=== PATIENT | male | born 1940 | race Caucasian/White ===

== ENCOUNTER → 2018-11-04 | Outpatient (CLI) | payer MEDICARE | LOC: LAB SHORT 07:15 → PLD 07:15 | DX: D48.5 Neoplasm of uncertain behavior of skin (principal) | CPT/HCPCS: 88341; 88342 ==

== ENCOUNTER → 2018-12-05 | Outpatient (CLI) | payer MEDICARE | LOC: LAB 12:00 → LAB SHORT 12:00 | DX: Z48.817 Encounter for surgical aftercare following surgery on the skin and subcutaneous tissue (principal) | CPT/HCPCS: 87070; 87205 ==

== ENCOUNTER → 2020-11-28 | Outpatient (CLI) | payer MEDICARE | END | disposition home or self-care (01) | LOC: LAB SHORT 13:14 | PROVIDERS: Family Medicine | DX: M16.12 Unilateral primary osteoarthritis, left hip (principal); Z79.899 Other long term (current) drug therapy | CPT/HCPCS: G0480 ==

== ENCOUNTER 2024-06-21 11:51 | Inpatient (IN) | payer OTHER ==
[2024-06-21] VITALS (13 sets, daily range): BP systolic 139–173; BP diastolic 78–92
[~2024-06-21] VITALS: Ht 182.9 cm; Wt 95.1 kg
[2024-06-21 12:25] LABS: BASOPHILS ABSOLUTE AUTO 0.02 K/mm3 (0.00-0.23); BASOPHILS PERCENT AUTO 0 % (0-2); EOSINOPHILS ABSOLUTE AUTO 0.03 K/mm3 (0.00-0.68); EOSINOPHILS PERCENT AUTO 1 % (0-6); Hematocrit 43.3 % (37.0-53.0); Hemoglobin 15.1 g/dL (13.5-17.5); IMMATURE GRAN ABSOLUTE AUTO 0.01 K/mm3 (0.00-0.10); IMMATURE GRAN PERCENT AUTO 0 % (0-1); LYMPHOCYTES ABSOLUTE AUTO 0.83 K/mm3 (0.84-5.20); LYMPHOCYTES PERCENT AUTO 14 % (21-46); MONOCYTES ABSOLUTE AUTO 0.79 K/mm3 (0.16-1.47); MONOCYTES PERCENT AUTO 13 % (4-13); Mean Corpuscular HGB 32.3 pg (26.0-34.0); Mean Corpuscular HGB Conc 34.9 g/dL (31.5-36.5); Mean Corpuscular Volume 93 fL (80-100); Mean Platelet Volume 10.6 fL (9.1-12.4); NEUTROPHILS ABSOLUTE AUTO 4.36 K/mm3 (1.96-9.15); NEUTROPHILS PERCENT AUTO 72 % (41-73); Platelet Count 200 K/mm3 (150-400); RDW Coefficient Variation 13.2 % (11.7-14.2); RDW Standard Deviation 45.1 fL (35.1-46.3); Red Blood Cell Count 4.67 M/mm3 (4.30-5.90); White Blood Cell Count 6.04 K/mm3 (4.00-11.30)
[2024-06-21 12:44] LABS: Albumin, Blood 4.1 g/dL (3.4-5.0); Albumin/Globulin Ratio 1.2 (0.8-1.8); Bilirubin, Total 0.9 mg/dL (0.1-1.0); Bun/Creatinine Ratio 21.6 (12.0-20.0); Calcium, Blood 9.5 mg/dL (8.5-10.1); Creatinine, Blood 1.16 mg/dL (0.60-1.20); Globulin, Blood 3.4 g/dL (2.2-4.0); Total Protein, Blood 7.5 g/dL (6.4-8.2)
[2024-06-21] MEDS ORDERED: Ondansetron HCl 2 MG / ML 2ML Vial IV ONE (13:45)
[2024-06-21] MEDS ORDERED: NS 1,000 ML IV SCH ×2 (13:55→14:00)
[2024-06-21] MEDS ORDERED: Morphine Sulfate 4 MG/1 ML Injection IV ONE (13:55)
[2024-06-21] MEDS ORDERED: FLU VACC TS2024-25(6MOS UP)/PF 45 MCG/0.5 ML SYRINGE IM SCH (14:00)
[2024-06-21] MEDS ORDERED: Magnesium Hydroxide Conc 10 ML UDC PO PRN (14:00)
[2024-06-21 14:04] LABS: Influenza A, PCR NEGATIVE (NEGATIVE); Influenza B, PCR NEGATIVE (NEGATIVE); Resp Syncytial Virus, PCR NEGATIVE (NEGATIVE); SARS-Cov-2 (COVID-19) PCR, MMC NEGATIVE (NEGATIVE)
[2024-06-21] MEDS ORDERED: HydrALAZINE HCl 20 MG / ML 1ML Vial IV STA (14:26)
[2024-06-21] MEDS ORDERED: CeFAZolin Sodium 2,000 MG in NS 100 ML IV SCH (14:40)
[2024-06-21] MEDS ORDERED: Bupivacaine 0.5% HCl 5 MG/ML 30MLVIAL ONE (14:53)
[2024-06-21] MEDS ORDERED: HydrALAZINE HCl 20 MG / ML 1ML Vial IV PRN (15:00)
[2024-06-21] MEDS ORDERED: HYDROmorphone HCl/Pf 1MG SYR IV PRN (15:10)
[2024-06-21] MEDS ORDERED: Albuterol 2.5 MG/3 ML VIAL INH PRN (15:10)
[2024-06-21] MEDS ORDERED: FentaNYL Citrate 50 MCG/ML 2 ML Injection IV PRN ×2 (15:10→17:40)
[2024-06-21] MEDS ORDERED: Ondansetron HCl 2 MG / ML 2ML Vial IV PRN (15:10)
[2024-06-21] MEDS ORDERED: propofoL 20 ML IV ONE (15:54)
[2024-06-21] MEDS ORDERED: FentaNYL Citrate 50 MCG/ML 2 ML Injection ONE (15:54)
[2024-06-21] MEDS ORDERED: Rocuronium Bromide 10 MG/ML 5ML Injection IV ONE (15:55)
[2024-06-21] MEDS ORDERED: Lidocaine HCl 2% 20 ML MDV ONE (15:55)
[2024-06-21] MEDS ORDERED: Ondansetron HCl 2 MG / ML 2ML Vial ONE (15:55)
[2024-06-21] MEDS ORDERED: Dexamethasone Sod Phos 10 MG/ML 1ML VIAL ONE (15:55)
[2024-06-21] MEDS ORDERED: Sugammadex Sodium 200 MG/2ML SDV (100 MG/ML) ONE (17:26)
[2024-06-21] MEDS ORDERED: HYDROcodone 5-APAP 325 TAB PO PRN (17:40)
[2024-06-21] MEDS ORDERED: Ketorolac Tromethamine 30mg Vial ONE (17:52)
--- NOTE | 2024-06-21 18:34 | NUR ---
TRANSFER TO UNIT AFTER RECEIVING REPORT FROM WARP [facility]ULER, PATIENT TRANSFERRED TO UNIT VIA GURNEY AT APPROX 1820. PATIENT ALERT, COMMUNICATES NEEDS EFFECTIVELY. TRANSFERRED TO BED VIA SLIDER SHEET. S/P HERNIA REPAIR WITH MESH - GAUZE AND TEGADERM DX TO R LOWER ABD C/D/I. DENIES PAIN, N/V. IVF INFUSING TO GRAVITY. SBP 160s. DENIES CHEST PAIN, PRESSURE. TELEMETRY SHOWING SINUS 60s PER CHILD MONITOR. ON ROOM AIR, SATs >90%. RR EVEN, UNLABORED. AT BEDSIDE. CALL LIGHT IN REACH.
[2024-06-21] MEDS ORDERED: TAMS.4ER PO (18:39)
[2024-06-21] MEDS ORDERED: ATOR10 PO (18:40)
[2024-06-21] MEDS ORDERED: HYDCHL12.5 PO (18:40)
[2024-06-22] MEDS ORDERED: MELA3 PO (00:52)
[2024-06-22] MEDS ORDERED: Melatonin 3 MG Tab PO ONE (00:55)
[2024-06-22 05:15] VITALS: BP 157/89
[2024-06-22 05:34] LABS: Hematocrit 35.3 % (37.0-53.0); Hemoglobin 12.3 g/dL (13.5-17.5); Mean Corpuscular HGB 32.5 pg (26.0-34.0); Mean Corpuscular HGB Conc 34.8 g/dL (31.5-36.5); Mean Corpuscular Volume 93 fL (80-100); Mean Platelet Volume 10.5 fL (9.1-12.4); Platelet Count 155 K/mm3 (150-400); RDW Coefficient Variation 13.2 % (11.7-14.2); RDW Standard Deviation 45.3 fL (35.1-46.3); Red Blood Cell Count 3.79 M/mm3 (4.30-5.90); White Blood Cell Count 6.67 K/mm3 (4.00-11.30)
--- NOTE | 2024-06-22 05:54 | NUR ---
NOC SUMMARY- PT PAIN HAS BEEN MANAGED WELL. PT DRESSING SCANT SHADOWING AND IS INTACT. PT HAD NO TELE EVENTS REPORTED. PT HAS BEEN UP TO VOID. PT REPORTS PASSING GAS. PT DID BECOME MORE CONFUSED THROUGH THE NIGHT. PT TRIED TO GET OOB A FEW TIMES. PT STAYED THE NIGHT AND WAS ABLE TO REDIRECT HIM AT TIMES. THIS AM PT IS LESS CONFUSED AND IS STAYING IN BED. IS AT BEDSIDE AND HAS BEEN HELPFUL. PT HAS HAD SIPS OF WATER AND IS TOLERATING WELL. CALL LIGHT IN REACH AND BED ALARM ON.
[2024-06-22 06:15] LABS: Bun/Creatinine Ratio 22.3 (12.0-20.0); Calcium, Blood 8.2 mg/dL (8.5-10.1); Creatinine, Blood 1.03 mg/dL (0.60-1.20); Potassium, Blood 3.9 mmol/L (3.5-5.5)
[2024-06-22 07:19] VITALS: BP 127/79
[2024-06-22] MEDS ORDERED: Heparin Sodium 5000 Units/ML 1ML MDV SC SCH (09:00)
[2024-06-22 10:25] VITALS: BP 148/76
[2024-06-22 15:39] VITALS: BP 143/75
[2024-06-22] MEDS ORDERED: Ondansetron HCl 2 MG / ML 2ML Vial IV PRN (17:00)
[2024-06-22 19:07] VITALS: BP 142/82
--- NOTE | 2024-06-22 19:14 | NUR ---
SHIFT SUMMARY PT IS POD#1. PAIN MANAGED WITH NORCO X2 THIS SHIFT. PT HAS BEEN AT BASELINE MENTATION PER HIS , CONFUSED/FORGETFUL THIS SHIFT. PT TOLERATED CLEAR LIQUIDS THIS SHIFT BUT HAD INCREASED NAUSEA THIS EVENING, ZOFRAN GIVEN NAUSEA RESOLVED, BOWEL SOUNDS PRESENT X4 QUADRANTS. PT HAD 1 BM TODAY. PT'S IS AT THE BEDSIDE AND HELPS TO PROVIDE CARE FOR PATIENT. BED ALARM/CHAIR ALARM USED FOR PATIENT SAFETY.
[2024-06-22 23:44] VITALS: BP 140/73
[2024-06-23 03:42] VITALS: BP 159/85
--- NOTE | 2024-06-23 04:39 | NUR ---
NOC SUMMARY- PT HAS BEEN VOIDING WELL. PT HAS BEEN GETTING OOB WITHOUT CALLING. PT HAS SET OFF BED ALARM NUMEROUS TIMES. PT HAS BEEN HELPFUL REDIRECTING PT. PT HAS HAD NO REPORTED TELE EVENTS. PT PAIN MANAGED WELL. PT DRESSING C/D/I. CALL LIGHT IN REACH AND BED ALARM ON.
[2024-06-23 07:18] VITALS: BP 146/89
[2024-06-23 15:13] VITALS: BP 134/85
--- NOTE | 2024-06-23 17:08 | NUR ---
SHIFT SUMMARY PT IS POD2 FOR HERNIA REPAIR. PT IS A/O X2, ORIENTED TO HIMSELF AND PLACE BUT NOT SITUATION, PT IS FORGETFUL AND IMPULSIVE. BED ALARM ON FOR SAFETY. PT DENIES PAIN. PASSING GAS, HAS NOT HAD A BM THIS SHIFT. DRESSING TO R GROIN C/D/I. VSS. PT TOLERATING PO FLUIDS AND FULL LIQUID DIET W/O INCREASED PAIN BUT HAS BEEN MEDICATED FOR NAUSEA ONCE TODAY. SPOUSE AT BEDSIDE, CALL LIGHT IN REACH.
[2024-06-23 19:40] VITALS: BP 142/96
[2024-06-24 03:51] VITALS: BP 156/87
--- NOTE | 2024-06-24 05:33 | NUR ---
SHIFT SUMMARY POD 3 HERNIA REPAIR. NO ACUTE CHANGES OVERNIGHT. PT REMAINS @ BASELINE MENTATION - A&0 x2, COOPERATIVE c CARE, EASILY REDIRECTABLE BUT IMPULSIVE. VSS, NO TELE EVENTS THIS SHIFT. INCISION SITE TO R GROIN c GAUZE D/I c SCANT SEROSANG DRAINAGE. PT TOLERATING FULL LIQUID DIET, DENIES N/V. REPORTS PAIN TOLERABLE. PT REPORTS PASSING FLATUS c BM. VOIDING IND. PT AMBULATES USING FWW c SBA. PT UNSTEADY & BED ALARM IN USE R/T SAFETY. @ BEDSIDE OVERNIGHT. ANTICIPATED DISCHARGE LATER TODAY. CALL LIGHT IN REACH, WILL REPORT TO DAY RN.
[2024-06-24 07:17] VITALS: BP 147/85
[2024-06-24] MEDS ORDERED: Norco 5-325 Ta1 EACH PO (10:15)
--- NOTE | 2024-06-24 12:42 | NUR ---
discharge pt tolerating diet well, denies pain during shift. passing flatus. no nausea. escorted out via wheelchair.
== END 2024-06-24 12:29 | disposition home or self-care (01) | DRG 351 ==
LOC: ER 11:51 → SURS 13:58
PROVIDERS: Physician Assistant; Surgery; ADMIT Internal Medicine
PROC: 0YU50JZ Supplement Right Inguinal Region with Synthetic Substitute, Open Approach (ICD-10-PCS; principal; 2024-06-21 15:15)
DX: K40.30 Unilateral inguinal hernia, with obstruction, without gangrene, not specified as recurrent (principal); E87.1 Hypo-osmolality and hyponatremia; K56.609 Unspecified intestinal obstruction, unspecified as to partial versus complete obstruction; I44.0 Atrioventricular block, first degree; I16.0 Hypertensive urgency; I10 Essential (primary) hypertension; N40.0 Benign prostatic hyperplasia without lower urinary tract symptoms; E78.5 Hyperlipidemia, unspecified; M19.90 Unspecified osteoarthritis, unspecified site; N52.9 Male erectile dysfunction, unspecified; Z96.642 Presence of left artificial hip joint; Z98.49 Cataract extraction status, unspecified eye; Z89.421 Acquired absence of other right toe(s); Z79.899 Other long term (current) drug therapy; Z88.0 Allergy status to penicillin; Z87.891 Personal history of nicotine dependence
CPT/HCPCS: 0241U; 36415; 74177; 80048; 80053; 83605; 84484; 85025; 85027; 93005; 93010; 94760; 96374; 96374-59; 99285-25; A9270; C1781; J0690; J1100; J1644; J1885; J2405; J2704; J3010; J7030; Q9967

== ENCOUNTER 2024-07-07 16:55 | Emergency (ER) | payer OTHER ==
[~2024-07-07] VITALS: Ht 180.3 cm; Wt 86.2 kg
[~2024-07-07 16:55] MED LIST: ATOR10 PO; HYDCHL12.5 PO; MELA3 PO; Norco 5-325 Ta1 EACH PO; TAMS.4ER PO
[2024-07-07 17:28] VITALS: BP 138/85
[2024-07-07] MEDS ORDERED: DOXY100 PO (21:17)
== END 2024-07-07 21:25 | disposition home or self-care (01) ==
LOC: ER 16:55
DX: J21.9 Acute bronchiolitis, unspecified (principal); J18.0 Bronchopneumonia, unspecified organism; Z88.0 Allergy status to penicillin; Z79.899 Other long term (current) drug therapy
CPT/HCPCS: 71046; 99283-25